=== PATIENT | female | born 1960 | race African-American/Black ===

== ENCOUNTER 2020-05-23 10:39 | Outpatient (CLI) | payer OTHER, SELFPAY ==
--- NOTE | 2020-05-23 | ECG_ITS ---
Measurements Intervals [place] Rate: 53 P: 39 [place]: 172 QRS: 46 QRSD: 93 T: 45 QT: 410 QTc: 388 Interpretive Statements SINUS BRADYCARDIA INCOMPLETE RIGHT BUNDLE BRANCH BLOCK NONSPECIFIC T-WAVE ABNORMALITY- ANTERIOR LEADS BORDERLINE ECG Electronically Signed On 05-23-2020 12:08:36 CDT by Carlo Negron D.O.
[2020-05-23 11:10] LABS: Hemoglobin 11.9 g/dL (12.0-15.0)
[2020-05-23 11:24] LABS: Albumin Level 4.3 g/dL (3.5-5.1); Estimated Glomerular Filt Rate > 60; Glucose 106 mg/dL (65-105)
[2020-05-23 13:11] LABS: Hemoglobin A1C 5.8 % (<5.7)
== END 2020-05-23 10:40 | disposition home or self-care (01) ==
PROVIDERS: Visit Provider Orthopaedic Surgery
DX: Z01.818 Encounter for other preprocedural examination (principal); I10 Essential (primary) hypertension; M17.12 Unilateral primary osteoarthritis, left knee
CPT/HCPCS: 36415; 82040; 82565; 82947; 83036; 85014; 85018; 93005